=== PATIENT | male | born 1940 | race African-American/Black ===

== ENCOUNTER 2018-10-01 05:50 | Inpatient (IN) ==
[2018-09-30 12:34] LABS: Basophils % 0.4 % (0.0-0.8); Eosinophils # 0.1 10*3/uL (0.0-0.87); Hemoglobin 12.9 GM/DL (14.0-18.0); Immature Granulocytes % 0.3 %; Immature Granulocytes Absolute 0.02 #; Lymphocytes % 14.2 % (21.2-54.2); Mean Corpuscular HGB Conc 31.5 GM/DL (32-36); Mean Corpuscular Volume 93.8 FL (87-102); Mean Platelet Volume 10.8 FL (9.6-12.0); Monocytes % 10.4 % (1.7-12.7); Neutrophils % 73.7 % (38.7-73.9); Platelet Count 169 T/CUMM (130-400); Red Blood Count 4.37 MC/CUMM (3.8-5.5); Red Cell Distribution Width 14.5 % (9.3-17.3)
[2018-09-30 12:46] LABS: Apearance,Urine Slightly Hazy (Clear); Bilirubin,Urine Negative (Negative); Blood, Urine Negative (Negative); Glucose,Urine (UA) Negative (Negative); Hyaline Casts,Urine 7 /LPF (0-3); Ketones,Urine 5 mg/dL (Negative); Mucus,Urine Many /LPF (Occasional); Nitrite,Urine Negative (Negative); Protein,Urine Negative; RBC,Urine 3 /HPF (0-4); Squamous Epithelial Cell,Urine Few /HPF (0-10); Urine Color Amber (Yellow); Urine Specific Gravity 1.028 (1.001-1.035); Urine Urobilinogen < 2.0 EU/DL (0.2-1.0); WBC,Urine 21 /HPF (0-6)
[2018-09-30 13:02] LABS: Calcium 9.3 MG/DL (8.5-10.1); Osmolality,Calculated 283.1 MOS/KG (273-304)
[2018-10-01] MEDS ORDERED: ceFAZolin 1,000 MG VIAL ONE (05:56)
[2018-10-01] MEDS ORDERED: ceFAZolin 2,000 MG in SYRINGE 1 EACH IV ONE (06:30)
[2018-10-01] MEDS ORDERED: GABAPENTIN 400 MG CAPSULE PO ONE (07:16)
[2018-10-01] MEDS ORDERED: DIAZEPAM 5 MG TABLET PO ONE (07:16)
[2018-10-01] MEDS ORDERED: FAMOTIDINE 20 MG TABLET PO ONE (07:17)
[2018-10-01] MEDS ORDERED: FAMOTIDINE 20 MG TABLET ONE (07:36)
[2018-10-01] MEDS ORDERED: DIAZEPAM 5 MG TABLET ONE (07:36)
[2018-10-01] MEDS ORDERED: GABAPENTIN 400 MG CAPSULE ONE (07:36)
[2018-10-01] MEDS ORDERED: LACTATED RINGERS 1,000 ML IV SCH ×2 (08:00→12:30)
[2018-10-01] MEDS ORDERED: BUPIVACAINE 0.5% 50 ML VIAL ONE (08:53)
[2018-10-01] MEDS ORDERED: MIDAZOLAM 2 MG/2 ML VIAL ONE (08:55)
[2018-10-01] MEDS ORDERED: fentaNYL 100 MCG/2 ML VIAL ONE ×2 (08:55→12:03)
[2018-10-01] MEDS ORDERED: DEXAMETHASONE 4 MG/1 ML VIAL ONE ×3 (08:55→12:02)
[2018-10-01] MEDS ORDERED: ROPIVACAINE 0.5% 30 ML VIAL ONE (08:55)
[2018-10-01] MEDS ORDERED: EPINEPHrine 1 MG/ML VIAL ONE (09:04)
[2018-10-01] MEDS ORDERED: BACITRACIN OINT 0.9 GM PACK TOP ONE (09:14)
[2018-10-01] MEDS ORDERED: SEVOFLURANE 1 UNIT/15 MINUTE INH ONE (12:00)
[2018-10-01] MEDS ORDERED: PROPOFOL 200 MG/20 ML VIAL IV ONE (12:00)
[2018-10-01] MEDS ORDERED: KETOROLAC 30 MG/1 ML VIAL ONE (12:02)
[2018-10-01] MEDS ORDERED: PHENYLEPHRINE 1 MG/10 ML SYRINGE IV ONE (12:02)
[2018-10-01] MEDS ORDERED: ONDANSETRON 4 MG/2 ML VIAL ONE (12:02)
[2018-10-01] MEDS ORDERED: oxyCODONE IR 5 MG TABLET PO PRN (12:04)
[2018-10-01] MEDS ORDERED: ONDANSETRON 4 MG/2 ML VIAL IV PRN (12:04)
[2018-10-01] MEDS ORDERED: KETOROLAC 15 MG/1 ML VIAL IV PRN (12:04)
[2018-10-01] MEDS ORDERED: MAGNESIUM HYDROXIDE SUSP 30 ML UDCUP PO PRN (12:04)
[2018-10-01] MEDS ORDERED: MORPHINE 4 MG/1 ML VIAL IV PRN ×2 (12:04)
[2018-10-01] MEDS: oxyCODONE/ACETAMINOPHEN 5-325 MG TABLET PO PRN ×3 (13:29→23:43)
[2018-10-01] MEDS ORDERED: ceFAZolin 2,000 MG in SYRINGE 1 EACH IV SCH (13:30)
[2018-10-01] MEDS: PANTOPRAZOLE 40 MG TABLET PO SCH (14:02)
[2018-10-01] MEDS: ceFAZolin 2,000 MG in SYRINGE 1 EACH IV SCH (18:19)
[2018-10-01] MEDS: SULFAMETHOX/TRIMETHOPRIM 400-80 MG TABLET PO SCH (20:35)
[2018-10-01] MEDS: TAMSULOSIN 0.4 MG CAPSULE PO SCH (20:35)
[2018-10-02] MEDS: ceFAZolin 2,000 MG in SYRINGE 1 EACH IV SCH (02:45)
[2018-10-02 06:40] LABS: Basophils % 0.3 % (0.0-0.8); Eosinophils % 0.5 % (0.00-10.9); Hematocrit 34.9 VOL% (42.0-52.0); Hemoglobin 11.2 GM/DL (14.0-18.0); Immature Granulocytes % 0.3 %; Immature Granulocytes Absolute 0.03 #; Lymphocytes # 1.1 10*3/uL (1.4-4.0); Lymphocytes % 13.1 % (21.2-54.2); Mean Corpuscular HGB Conc 32.1 GM/DL (32-36); Mean Corpuscular Volume 91.8 FL (87-102); Mean Platelet Volume 10.8 FL (9.6-12.0); Monocytes % 10.3 % (1.7-12.7); Neutrophils % 75.5 % (38.7-73.9); Platelet Count 167 T/CUMM (130-400); Red Cell Distribution Width 14.5 % (9.3-17.3); White Blood Count 8.7 T/CUMM (4-12)
[2018-10-02 06:57] LABS: Calcium 8.7 MG/DL (8.5-10.1); Osmolality,Calculated 282.1 MOS/KG (273-304)
[2018-10-02] MEDS: oxyCODONE/ACETAMINOPHEN 5-325 MG TABLET PO PRN (08:09)
[2018-10-02 08:37] VITALS: BP 155/82
[2018-10-02] MEDS ORDERED: ASPIRIN EC 81 MG TABLET PO SCH (09:00)
[2018-10-02] MEDS: TAMSULOSIN 0.4 MG CAPSULE PO SCH (10:31)
[2018-10-02] MEDS: PANTOPRAZOLE 40 MG TABLET PO SCH (10:31)
[2018-10-02] MEDS: SULFAMETHOX/TRIMETHOPRIM 400-80 MG TABLET PO SCH (10:32)
== END 2018-10-02 11:12 | disposition home or self-care (01) | DRG 494 ==
LOC: N.OR 05:50 → N.SDSINP 05:51 → N.OR 09:46 → N.3E 12:04
PROVIDERS: ADMIT Orthopaedic Surgery; ATTEND Orthopaedic Surgery